=== PATIENT | male | born 1955 | race Caucasian/White ===

== ENCOUNTER 2022-04-05 17:50 | Inpatient (IN) | payer OTHER ==
[~2022-04-05] VITALS: Ht 167.6 cm; Wt 72.2 kg
[2022-04-05 18:31] LABS: BASOPHILS ABSOLUTE AUTO 0.04 K/mm3 (0.00-0.23); BASOPHILS PERCENT AUTO 0 % (0-2); EOSINOPHILS ABSOLUTE AUTO 0.02 K/mm3 (0.00-0.68); EOSINOPHILS PERCENT AUTO 0 % (0-6); Hemoglobin 14.6 g/dL (13.5-17.5); IMMATURE GRAN ABSOLUTE AUTO 0.07 K/mm3 (0.00-0.10); IMMATURE GRAN PERCENT AUTO 0 % (0-1); LYMPHOCYTES ABSOLUTE AUTO 0.98 K/mm3 (0.84-5.20); LYMPHOCYTES PERCENT AUTO 6 % (21-46); MONOCYTES PERCENT AUTO 5 % (4-13); Mean Corpuscular HGB 30.9 pg (26.0-34.0); Mean Corpuscular Volume 91 fL (80-100); Mean Platelet Volume 10.1 fL (9.1-12.4); NEUTROPHILS ABSOLUTE AUTO 15.98 K/mm3 (1.96-9.15); NEUTROPHILS PERCENT AUTO 89 % (41-73); Platelet Count 272 K/mm3 (150-400); RDW Coefficient Variation 13.2 % (11.7-14.2); RDW Standard Deviation 44.6 fL (35.1-46.3); Red Blood Cell Count 4.72 M/mm3 (4.30-5.90); White Blood Cell Count 17.89 K/mm3 (4.00-11.30)
[2022-04-05 18:52] LABS: Albumin, Blood 3.5 g/dL (3.4-5.0); Bilirubin, Total 0.5 mg/dL (0.1-1.0); Calcium, Blood 9.5 mg/dL (8.5-10.1); Globulin, Blood 3.6 g/dL (2.2-4.0); Potassium, Blood 4.5 mmol/L (3.5-5.5); Total Protein, Blood 7.1 g/dL (6.4-8.2)
--- NOTE | 2022-04-05 22:30 | NUR ---
ARRIVAL PATIENT TO ROOM 210 FROM ER, TRANSFERRED TO BED FROM [facility]. PATIENT REPORTS SIGNIFICANT PAIN TO RLQ, ESPECIALLY WITH MOVEMENT, WILL MEDICATE PER EMAR. CHANGED IN TO GOWN, OBSTAINED URINE SAMPLE FROM ER, SCD'S PLACED. VSS ON RA, LUNGS CLEAR. ORIENTED TO ROOM & CALL LIGHT. ATTEMPTED TO OBTAIN BLOOD CONSENT, PATIENT WOULD LIKE TO THINK ABOUT IT, WILL CHECK IN WITH PATIENT IN AM ON BLOOD CONSENT.
[2022-04-05 23:29] LABS: Source, Urine Clean Catch
[2022-04-05 23:30] LABS: Influenza A, PCR NEGATIVE (NEGATIVE); Influenza B, PCR NEGATIVE (NEGATIVE); Resp Syncytial Virus, PCR NEGATIVE (NEGATIVE); SARS-Cov-2 (COVID-19) PCR, MMC NEGATIVE (NEGATIVE)
[2022-04-05 23:39] LABS: Appearance, Urine Clear (Clear); Bilirubin, Urine Neg (Neg); Blood, Urine 1+ (Neg); Color, Urine Yellow (P-Yellow); Glucose Qualitative, Urine Neg (Neg); Ketones, Urine 3+ (Neg); Leukocyte Esterase, Urine 1+ (Neg); Nitrite, Urine Neg (Neg); Protein, Urine 2+ (Neg); Urobilinogen, Urine NORM (Normal)
[2022-04-06 00:05] LABS: Bacteria Few /hpf; Hyaline Casts 0-2 /lpf (0-2); Red Blood Cells, Urine 0-2 /hpf (0-2); Squamous Epithelial Cells Few /hpf (Few); White Blood Cells, Urine 0-2 /hpf (0-5)
--- NOTE | 2022-04-06 04:41 | NUR ---
SHIFT SUMMARY NO ACUTE CHANEGS SINCE ARRIVAL TO UNIT. MODERATE ABDOMINAL PAIN, MEDICATED WITH DILAUDID PER EMAR. RESTED IN BED T/O NIGHT. PATIENT KEPT NPO WITH MINIMAL ICE CHIPS, DENIES N/V. LOOKING FORWARD TO SURGERY THIS AM. CALLS APPROPRIATELY.
--- NOTE | 2022-04-06 10:50 | NUR ---
[facility]
--- NOTE | 2022-04-06 13:40 | NUR ---
POST OP ARRRIVES TO ROOM VIA GOURNEY, TRANSFERRED TO HOSPT BED. DROWSY BUT ORIENTED. DENIES PAIN OR N/V. ABD SOFT w/ LAP SITES x 3 COVERED w/ DERMABOND. LUNGS CLEAR BUT DIM. 2L NC. HRR. SIPS OF WATER GIVEN.
--- NOTE | 2022-04-06 18:46 | NUR ---
SHIFT SUMMARY PT HAD LAP APPY TODAY. POST SURGERY, FEELS MUCH BETTER. TOLERATING CLEAR LQ's WELL. HAS STOOD IN ROOM, BUT HAS BEEN VERY TIRED POST OP. REPORTING THAT HE HASN'T REALLY SLEPT IN DAYS & FEELS SO MUCH BETTER.
--- NOTE | 2022-04-07 04:35 | NUR ---
POD 1 S/P LAP APPY. PT VSS T/O NIGHT. INCISIONS CDI. PT ANN MARIE CL PO, HAD A FEW CRACKERS, DENIED N/V, REP NO FLATUS YET. PT REP PAIN MINIMAL, AT REST, MGD W/TORADOL AND 1 OXYCODONE W/REP RELIEF. PT EDUCATED ON ABD BRACING WHILE COUGHING. IVF AND ABX CONT PER ORDERS.
[2022-04-07 04:43] LABS: BASOPHILS ABSOLUTE AUTO 0.03 K/mm3 (0.00-0.23); BASOPHILS PERCENT AUTO 0 % (0-2); EOSINOPHILS ABSOLUTE AUTO 0.08 K/mm3 (0.00-0.68); EOSINOPHILS PERCENT AUTO 0 % (0-6); Hematocrit 37.4 % (37.0-53.0); Hemoglobin 12.2 g/dL (13.5-17.5); IMMATURE GRAN ABSOLUTE AUTO 0.22 K/mm3 (0.00-0.10); IMMATURE GRAN PERCENT AUTO 1 % (0-1); LYMPHOCYTES ABSOLUTE AUTO 0.84 K/mm3 (0.84-5.20); LYMPHOCYTES PERCENT AUTO 4 % (21-46); MONOCYTES ABSOLUTE AUTO 0.78 K/mm3 (0.16-1.47); MONOCYTES PERCENT AUTO 4 % (4-13); Mean Corpuscular HGB 30.7 pg (26.0-34.0); Mean Corpuscular HGB Conc 32.6 g/dL (31.5-36.5); Mean Corpuscular Volume 94 fL (80-100); Mean Platelet Volume 10.6 fL (9.1-12.4); NEUTROPHILS ABSOLUTE AUTO 17.99 K/mm3 (1.96-9.15); NEUTROPHILS PERCENT AUTO 90 % (41-73); Platelet Count 203 K/mm3 (150-400); RDW Coefficient Variation 13.4 % (11.7-14.2); RDW Standard Deviation 46.5 fL (35.1-46.3); Red Blood Cell Count 3.98 M/mm3 (4.30-5.90); White Blood Cell Count 19.94 K/mm3 (4.00-11.30)
[2022-04-07 05:01] LABS: Bun/Creatinine Ratio 16.7 (12.0-20.0); Calcium, Blood 8.9 mg/dL (8.5-10.1); Creatinine, Blood 0.96 mg/dL (0.60-1.20); Potassium, Blood 4.4 mmol/L (3.5-5.5)
--- NOTE | 2022-04-07 08:09 | NUR ---
A&O X4, C/O 5/10 INCISIONAL PAIN THIS AM, 1 OXYCODONE GIVEN, DENIES ANY NAUSEA, AMBULATED IN ROOM THIS AM, REPORTS PASSING FLATUS, DIET ADVANCED TO REGULAR, CONT. TO MONITOR FOR ANY CHANGES.
--- NOTE | 2022-04-07 17:28 | NUR ---
SUMMARY CONT. TO C/O ABD PAIN, TOLERABLE WITH PO PAIN MEDS, DENIES ANY NAUSEA, TOLERATING REGULAR DIET WELL, REPORTS PASSING FLATUS T/O THE DAY, AMBULATED X3 DOWN THE [place], TOOK A NAP IN THE AFTERNOON, INDEPENDENT TO THE BATHROOM, IV SL'D THIS AFTERNOON, NO ACUTE CHANGES THIS SHIFT.
--- NOTE | 2022-04-08 04:20 | NUR ---
POD2 FOR A LAP APPY. 3 LAP SITES, C/D/I. VSS. PT SLEPT WELL T/O THE NIGHT. PT TOLLERATING PO INTAKE, PASSING FLATTUS, AND VOIDING W/O DIFFICULTY. DENIES ANY N/V. MEDICATED FOR PAIN WITH TORADOL AND TYLENOL. PLAN OF CARE IS TO D/C HOME TODAY WITH ORAL ANTIBIOTICS. PT IS SLEEPING, IN NO DISTRESS. CALL LIGHT IN REACH.
[2022-04-08] MEDS ORDERED: OXYC5 PO (12:28)
[2022-04-08] MEDS ORDERED: AMOCLA875 PO (12:29)
== END 2022-04-08 13:42 | disposition home or self-care (01) | DRG 340 ==
LOC: ER 17:50 → SURS 22:14
PROVIDERS: Emergency Medicine; ADMIT Surgery
PROC: 0W9G40Z Drainage of Peritoneal Cavity with Drainage Device, Percutaneous Endoscopic Approach (ICD-10-PCS; 2022-04-06)
PROC: 0DTJ4ZZ Resection of Appendix, Percutaneous Endoscopic Approach (ICD-10-PCS; principal; 2022-04-06 11:00)
DX: K35.33 Acute appendicitis with perforation, localized peritonitis, and gangrene, with abscess (principal); Z88.8 Allergy status to other drugs, medicaments and biological substances; Z20.822 Contact with and (suspected) exposure to COVID-19; E78.5 Hyperlipidemia, unspecified; Z98.890 Other specified postprocedural states; Z89.029 Acquired absence of unspecified finger(s); F17.210 Nicotine dependence, cigarettes, uncomplicated; Z79.899 Other long term (current) drug therapy
CPT/HCPCS: 0241U; 36415; 74177; 80048; 80053; 81001; 83690; 85025; 87086; 88304; 96365-59; 96375; 96376; 99285-25; A9270; G0378; J1100; J1170; J1650; J1885; J2250; J2405; J2543; J2704; J2795; J3010; J7030; J7120; Q9967

== ENCOUNTER 2024-07-02 09:41 | Emergency (ER) | payer OTHER ==
[~2024-07-02] VITALS: Ht 170.2 cm; Wt 81.7 kg
[~2024-07-02 09:41] MED LIST: AMOCLA875 PO; OXYC5 PO
[2024-07-02 10:28] VITALS: BP 155/92
[2024-07-02] MEDS ORDERED: SILD25T PO (10:30)
[2024-07-02] MEDS ORDERED: AMLO5 PO (10:30)
[2024-07-02] MEDS ORDERED: Crestor40 MG PO (10:31)
[2024-07-02 13:57] LABS: BASOPHILS ABSOLUTE AUTO 0.06 K/mm3 (0.00-0.23); BASOPHILS PERCENT AUTO 1 % (0-2); EOSINOPHILS ABSOLUTE AUTO 0.35 K/mm3 (0.00-0.68); EOSINOPHILS PERCENT AUTO 4 % (0-6); Hematocrit 41.6 % (37.0-53.0); Hemoglobin 14.1 g/dL (13.5-17.5); IMMATURE GRAN ABSOLUTE AUTO 0.03 K/mm3 (0.00-0.10); IMMATURE GRAN PERCENT AUTO 0 % (0-1); LYMPHOCYTES PERCENT AUTO 27 % (21-46); MONOCYTES ABSOLUTE AUTO 0.66 K/mm3 (0.16-1.47); MONOCYTES PERCENT AUTO 7 % (4-13); Mean Corpuscular HGB 31.6 pg (26.0-34.0); Mean Corpuscular HGB Conc 33.9 g/dL (31.5-36.5); Mean Corpuscular Volume 93 fL (80-100); Mean Platelet Volume 10.3 fL (9.1-12.4); NEUTROPHILS ABSOLUTE AUTO 6.34 K/mm3 (1.96-9.15); NEUTROPHILS PERCENT AUTO 63 % (41-73); Platelet Count 270 K/mm3 (150-400); RDW Coefficient Variation 12.9 % (11.7-14.2); RDW Standard Deviation 44.1 fL (35.1-46.3); Red Blood Cell Count 4.46 M/mm3 (4.30-5.90); White Blood Cell Count 10.14 K/mm3 (4.00-11.30)
[2024-07-02] MEDS ORDERED: Acetaminophen 325 MG TABLET PO ONE (14:00)
[2024-07-02 14:21] LABS: Albumin, Blood 3.7 g/dL (3.4-5.0); Albumin/Globulin Ratio 1.1 (0.8-1.8); Bilirubin, Total 0.4 mg/dL (0.1-1.0); Calcium, Blood 9.3 mg/dL (8.5-10.1); Creatinine, Blood 0.91 mg/dL (0.60-1.20); Globulin, Blood 3.5 g/dL (2.2-4.0); Potassium, Blood 4.3 mmol/L (3.5-5.5); Total Protein, Blood 7.2 g/dL (6.4-8.2)
== END 2024-07-02 15:40 | disposition home or self-care (01) ==
LOC: ER 09:41
PROVIDERS: Physician Assistant
DX: M25.532 Pain in left wrist (principal); E78.5 Hyperlipidemia, unspecified; N52.9 Male erectile dysfunction, unspecified; F17.200 Nicotine dependence, unspecified, uncomplicated; Z88.8 Allergy status to other drugs, medicaments and biological substances; Z79.899 Other long term (current) drug therapy; Z59.89 Other problems related to housing and economic circumstances
CPT/HCPCS: 73110; 80053; 85025; 85651; 86140; 93971; 99284-25; A9270

== ENCOUNTER 2024-07-04 10:04 | Emergency (ER) | payer OTHER ==
[~2024-07-04] VITALS: Ht 170.2 cm; Wt 81.7 kg
[~2024-07-04 10:04] MED LIST changes: +AMLO5 PO; +Crestor40 MG PO; +SILD25T PO
[2024-07-04 11:13] LABS: BASOPHILS ABSOLUTE AUTO 0.06 K/mm3 (0.00-0.23); BASOPHILS PERCENT AUTO 1 % (0-2); EOSINOPHILS ABSOLUTE AUTO 0.33 K/mm3 (0.00-0.68); EOSINOPHILS PERCENT AUTO 4 % (0-6); Hemoglobin 13.5 g/dL (13.5-17.5); IMMATURE GRAN ABSOLUTE AUTO 0.03 K/mm3 (0.00-0.10); IMMATURE GRAN PERCENT AUTO 0 % (0-1); LYMPHOCYTES ABSOLUTE AUTO 2.65 K/mm3 (0.84-5.20); LYMPHOCYTES PERCENT AUTO 28 % (21-46); MONOCYTES ABSOLUTE AUTO 0.61 K/mm3 (0.16-1.47); MONOCYTES PERCENT AUTO 7 % (4-13); Mean Corpuscular HGB 31.4 pg (26.0-34.0); Mean Corpuscular HGB Conc 33.8 g/dL (31.5-36.5); Mean Corpuscular Volume 93 fL (80-100); Mean Platelet Volume 10.2 fL (9.1-12.4); NEUTROPHILS ABSOLUTE AUTO 5.74 K/mm3 (1.96-9.15); NEUTROPHILS PERCENT AUTO 61 % (41-73); Platelet Count 263 K/mm3 (150-400); RDW Coefficient Variation 12.9 % (11.7-14.2); RDW Standard Deviation 44.1 fL (35.1-46.3); White Blood Cell Count 9.42 K/mm3 (4.00-11.30)
[2024-07-04 13:53] LABS: Body Fluid Crystals NEG (NEGATIVE)
[2024-07-04 14:12] LABS: BODY FLUID RBC 0.003 M/mm3 (0-0)
[2024-07-04 14:13] LABS: Color, Synovial Fluid Pale Yellow (None-P Yel); RBC Count, Synovial Fluid 3000 /mm3 (0-0); WBC Count, Synovial Fluid 9506 /mm3 (0-180)
[2024-07-04 14:14] LABS: Appearance, Synovial Fluid Cloudy (Clear)
[2024-07-04 14:59] LABS: Lymphs, Synovial Fluid 20 % (0-15); Monocytes/Macrophages, Synovia 45 % (0-65); Neutrophils, Synovial Fluid 35 % (0-24)
[2024-07-04 15:39] VITALS: BP 134/86
== END 2024-07-04 17:02 | disposition home or self-care (01) ==
LOC: ER 10:04
PROVIDERS: Physician Assistant; Student in an Organized Health Care Education/Training Program
DX: M25.432 Effusion, left wrist (principal); E78.5 Hyperlipidemia, unspecified; I10 Essential (primary) hypertension; F17.210 Nicotine dependence, cigarettes, uncomplicated; Z79.899 Other long term (current) drug therapy; Z88.8 Allergy status to other drugs, medicaments and biological substances
CPT/HCPCS: 20605; 76882; 85025; 85651; 86140; 87070; 87075; 87205; 89051; 89060; 99284-25